=== PATIENT | male | born 1990 | race Caucasian/White ===

== ENCOUNTER 2016-06-26 14:37 | Emergency (ER) | payer MEDICAID | END 2016-06-26 15:57 | disposition left against medical advice (07) | LOC: JP.ED 14:37 | DX: Z53.21 Procedure and treatment not carried out due to patient leaving prior to being seen by health care provider (principal) ==

== ENCOUNTER 2017-01-29 02:11 | Emergency (ER) | payer MEDICAID ==
--- NOTE | 2017-01-29 02:51 | EDM.PDOC ---
ED HPI GENERAL MEDICAL PROBLEM - General Chief Complaint: Chest Pain Stated Complaint: HEART ATTACK? Time Seen by Provider: 01/29/17 02:24 Source of Information: Reports: Patient, Family (spouse), Old Records, RN Notes Reviewed History Limitations: Reports: No Limitations - History of Present Illness INITIAL COMMENTS - FREE TEXT/NARRATIVE: 05.18 Brought by his Chief complaint Chest pain, worried he's having a heart attack History of present illness 26-year-old male with no cardiac history, late down to sleep but started developing right anterior and central chest pain, sharp, worse with deep breath and worse with movement. Started over 3 hours ago. Did have some sweating with it some slight nausea but no vomiting. No palpitations. However he fed did feel that his hands are numb. Reports considerable stress lately. 3-week-old child in her sleep recently and at the found that his 13 -year-old sibling has cancer. 3-year-old daughter underwent heart valve surgery. He's had some diarrhea last few days Family history heart disease in his mom who has only 20% of cardiac function left. No recent illness or infection No leg swelling No smoking Has been diagnosed with bipolar and ADD - Related Data Allergies Allergy/AdvReac Type Severity Reaction Status Date / Time No Known Allergies Allergy Verified 01/29/17 02:13 Home Meds: Home Meds Lisdexamfetamine [Vyvanse] 70 mg PO DAILY 03/21/16 [History] Melatonin 3 mg PO DAILY PRN 03/21/16 [History] Mirtazapine [Mirtazapine] 15 mg PO ASDIRECTED 03/21/16 [History] OXcarbazepine [Oxcarbazepine] 300 mg PO DAILY 03/21/16 [History] Sertraline HCl [Zoloft] 50 mg PO DAILY 03/21/16 [History] Past Medical History HEENT History: Reports: Other (See Below) Other HEENT History: Frequent tooth pain. Cardiovascular History: Reports: Hypertension Gastrointestinal History: Reports: GERD Other Gastrointestinal History: ulcer Musculoskeletal History: Reports: Back Pain, Chronic Psychiatric History: Reports: ADHD, Anxiety, Bipolar, Depression Endocrine/Metabolic History: Reports: Diabetes, Type II - Infectious Disease History Infectious Disease History: Reports: Chicken Pox Social & Family History - Tobacco Use Smoking Status *Q: Current Every Day Smoker Years of Tobacco use: 13 Packs/Tins Daily: 0.7 Used Tobacco, but Quit: No Month Tobacco Last Used: 09 Second Hand Smoke Exposure: Yes - Caffeine Use Caffeine Use: Reports: Coffee, Soda - Alcohol Use Days Per Week of Alcohol Use: 0 Number of Drinks Per Day: 6 Total Drinks Per Week: 0 - Recreational Drug Use Recreational Drug Use: No Drug Use in Last 12 Months: Yes Recreational Drug Type: Reports: Amphetamines (Speed), Cocaine, Inhalants (Glues , Solvents, Aerosols), Marijuana/Hashish, Methamphetamine, Other (see below) Recreational Drug Use Frequency: Not Used In Over 6 Months ED ROS GENERAL - Review of Systems Review Of Systems: See Below Constitutional: Reports: Diaphoresis. Denies: Fever, Chills, Decreased Appetite , Weight Loss, Weight Gain HEENT: Denies: Dental Pain, Ear Pain, Eye Discharge, Rhinitis Respiratory: Reports: Shortness of Breath, Pleuritic Chest Pain. Denies: Wheezing, Cough, Sputum Cardiovascular: Reports: Chest Pain, Blood Pressure Problem. Denies: Dyspnea on Exertion, Lightheadedness, Palpitations Endocrine: Reports: No Symptoms GI/Abdominal: Reports: Diarrhea, Melena, Nausea. Denies: Abdominal Pain, Vomiting : Reports: No Symptoms Musculoskeletal: Reports: No Symptoms Skin: Reports: No Symptoms Neurological: Reports: No Symptoms, Numbness (Hands) Psychiatric: Reports: Anxiety. Denies: Suicidal Ideation Hematologic/Lymphatic: Reports: No Symptoms Immunologic: Reports: No Symptoms ED EXAM, GENERAL - Physical Exam Exam: See Below Exam Limited By: No Limitations General Appearance: Alert, Anxious, Other (Vital signs appears well) Eye Exam: Bilateral Eye: Normal Inspection Ears: Normal External Exam, Normal Canal Ear Exam: Bilateral Ear: Auricle Normal, Canal Normal, TM normal Nose: Normal Inspection, Normal Mucosa Throat/Mouth: Normal Inspection Head: Atraumatic, Other Neck: Normal Inspection, Non-Tender. No: Carotid Bruit, Thyromegaly Respiratory/Chest: No Respiratory Distress, Lungs Clear, Normal Breath Sounds, No Accessory Muscle Use, Chest Non-Tender Cardiovascular: Normal Peripheral Pulses, Regular Rate, Rhythm GI/Abdominal: Normal Bowel Sounds, Soft, Tender (Mild diffuse) Back Exam: Normal Inspection Extremities: Normal Inspection. No: Pedal Edema Neurological: Alert, Oriented, No Motor/Sensory Deficits Psychiatric: Anxious. No: Depressed Mood Skin Exam: Warm, Dry, Intact, Normal Color, No Rash Lymphatic: No Adenopathy Course - Vital Signs Last Recorded V/S: Last Vital Signs Temp 36.9 C 01/29/17 02:53 Pulse 85 01/29/17 03:10 Resp 16 01/29/17 03:10 BP 131/88 01/29/17 03:10 Pulse Ox 96 01/29/17 03:10 - Orders/Labs/Meds Orders: Active Orders 24 hr Category Date Time Status EKG Documentation Completion [RC] ASDIRECTED Care 01/29/17 02:36 Active Chest 1V Frontal [CR] Stat Exams 01/29/17 02:35 Taken EKG 12 Lead [EK] Routine Ther 01/29/17 02:35 Ordered Labs: Laboratory Tests 01/29/17 01/29/17 01/29/17 Range/Units 02:44 02:44 02:44 WBC 10.0 (4.5-11.0) K/uL RBC 4.41 (4.30-5.90) M/uL Hgb 13.4 (12.0-15.0) g/dL Hct 39.7 L (40.0-54.0) % MCV 90 (80-98) fL MCH 30 (27-31) pg MCHC 34 (32-36) % Plt Count 263 (150-400) K/uL D-Dimer, Quantitative < 100 (0.0-400.0) ng/mL Sodium 136 L (140-148) mmol/L Potassium 3.8 (3.6-5.2) mmol/L Chloride 101 (100-108) mmol/L Carbon Dioxide 25 (21-32) mmol/L Anion Gap 13.8 (5.0-14.0) mmol/L BUN 10 (7-18) mg/dL Creatinine 1.1 (0.8-1.3) mg/dL Est Cr Clr Drug Dosing 107.44 mL/min Estimated GFR (MDRD) > 60 (>60) Glucose 152 H (74-106) mg/dL Calcium 8.7 (8.5-10.1) mg/dL Troponin I < 0.017 (0.000-0.056) ng/mL - Re-Assessments/Exams Free Text/Narrative Re-Assessment/Exam: 01/29/17 02:54 26-year-old male with sharp chest pain aggravated by deep breath and movement. Considerable stress lately EKG shows sinus rhythm without signs of ischemia 01/29/17 03:39 Chest x-ray normal by my interpretation CBC troponin and d-dimer normal Elevated blood sugar 152 Assessment Noncardiac chest pain Pleuritic chest pain Symptomatic treatment Follow-up primary care 1 week if symptoms persisting Also to evaluate elevated blood sugar Departure - Departure Time of Disposition: 03:40 Disposition: Home, Self-Care 01 Condition: Good Clinical Impression: Pleuritic chest pain, Elevated blood sugar level, Non-cardiac chest pain - Discharge Information Instructions: Chest Wall Pain, [id number] Referrals: Annie Dong PA [Primary Care Provider] - Forms: ED Department Discharge Additional Instructions: Take acetaminophen/ibuprofen/naproxen as needed for pain Make an appointment to see your doctor in 1 week to recheck her chest and also to discuss your elevated blood sugar and whether to go on treatment for this Return to emergency if you develop high fever, or shortness of breath or weakness to the point of collapsing or fainting - My Orders Last 24 Hours: My Active Orders 01/29/17 02:35 Chest 1V Frontal [CR] Stat EKG 12 Lead [EK] Routine 01/29/17 02:36 EKG Documentation Completion [RC] ASDIRECTED - Assessment/Plan Last 24 Hours: My Active Orders 01/29/17 02:35 Chest 1V Frontal [CR] Stat EKG 12 Lead [EK] Routine 01/29/17 02:36 EKG Documentation Completion [RC] ASDIRECTED
[2017-01-29 03:11] VITALS: BP 131/88
--- NOTE | 2017-01-29 08:29 | CR ---
Chest 1V Frontal INDICATION: chest pain FINDINGS: Comparison 01/20/2016. No change. Negative AP portable chest x-ray.
== END 2017-01-29 03:51 | disposition home or self-care (01) ==
LOC: JP.ED 02:11
DX: R07.81 Pleurodynia (principal); E11.9 Type 2 diabetes mellitus without complications; I10 Essential (primary) hypertension; F17.210 Nicotine dependence, cigarettes, uncomplicated; Z79.899 Other long term (current) drug therapy
CPT/HCPCS: 36415; 71010; 71010-26; 80048; 84484; 85027; 85379; 93005; 93010; 99284; 99285-25

== ENCOUNTER 2017-11-15 00:50 | Emergency (ER) | payer BC, MEDICAID ==
--- NOTE | 2017-11-15 04:43 | EDM.PDOC ---
ED HPI GENERAL MEDICAL PROBLEM - General Chief Complaint: General Stated Complaint: CHEST PAIN TINGLING DIAHREA Time Seen by Provider: 11/15/17 01:29 Source of Information: Reports: Patient History Limitations: Reports: No Limitations - History of Present Illness INITIAL COMMENTS - FREE TEXT/NARRATIVE: Heavy feeling in upper chest, mild sob, pain in upper back in midline, arms throbbing. Now coughing frequently. chills but no fever. All began within past few hours. Chest Pain Score (Numeric/FACES): 8 - Related Data Allergies Allergy/AdvReac Type Severity Reaction Status Date / Time No Known Allergies Allergy Verified 11/15/17 01:20 Home Meds: Home Meds Lisdexamfetamine [Vyvanse] 70 mg PO DAILY 03/21/16 [History] Dextroamphetamine/Amphetamine [Adderall 10 mg Tablet] 10 mg PO DAILY 11/15/17 [ History] Past Medical History HEENT History: Reports: Impaired Vision, Other (See Below) Other HEENT History: Frequent tooth pain. Cardiovascular History: Reports: Hypertension Respiratory History: Reports: Asthma Gastrointestinal History: Reports: GERD, Other (See Below) Other Gastrointestinal History: ulcer Musculoskeletal History: Reports: Arthritis, Back Pain, Chronic Neurological History: Reports: Concussion Psychiatric History: Reports: ADHD, Anxiety, Depression, Psych Hospitalization(s ), Suicide Attempt Endocrine/Metabolic History: Reports: Diabetes, Type II Dermatologic History: Reports: Psoriasis - Infectious Disease History Infectious Disease History: Reports: Chicken Pox - Past Surgical History HEENT Surgical History: Reports: Myringotomy w Tube(s) Social & Family History - Tobacco Use Smoking Status *Q: Current Every Day Smoker Years of Tobacco use: 15 Packs/Tins Daily: 0.7 - Caffeine Use Caffeine Use: Reports: Soda - Recreational Drug Use Recreational Drug Use: No ED ROS GENERAL - Review of Systems Review Of Systems: See Below Constitutional: Reports: Chills HEENT: Reports: No Symptoms Respiratory: Reports: Shortness of Breath Cardiovascular: Reports: Chest Pain Endocrine: Reports: No Symptoms GI/Abdominal: Reports: No Symptoms : Reports: No Symptoms Musculoskeletal: Reports: Other (HPI) Skin: Reports: No Symptoms Neurological: Reports: No Symptoms Psychiatric: Reports: No Symptoms ED EXAM, GENERAL - Physical Exam Exam: See Below Exam Limited By: No Limitations General Appearance: Alert, WD/WN, Mild Distress Eye Exam: Bilateral Eye: Normal Inspection Throat/Mouth: Normal Oropharynx Neck: Normal Inspection Respiratory/Chest: Lungs Clear, Chest Non-Tender Cardiovascular: Normal Peripheral Pulses, Regular Rate, Rhythm, No Murmur GI/Abdominal: Non-Tender Back Exam: Normal Inspection. No: Muscle Spasm Extremities: Normal Inspection Neurological: Alert Psychiatric: Normal Affect Skin Exam: Warm, Dry Course - Vital Signs Last Recorded V/S: Last Vital Signs Temp 37.1 C 11/15/17 01:23 Pulse 78 11/15/17 02:50 Resp 19 11/15/17 02:50 BP 126/66 11/15/17 02:50 Pulse Ox 96 11/15/17 02:50 - Orders/Labs/Meds Orders: Active Orders 24 hr Category Date Time Status EKG Documentation Completion [RC] ASDIRECTED Care 11/15/17 01:40 Active Chest 2V [CR] Urgent Exams 11/15/17 01:39 Taken EKG 12 Lead [EK] Urgent Ther 11/15/17 01:39 Ordered Labs: Laboratory Tests 11/15/17 11/15/17 11/15/17 Range/Units 01:50 01:50 01:50 WBC 8.9 (4.5-11.0) K/uL RBC 4.38 (4.30-5.90) M/uL Hgb 13.2 (12.0-15.0) g/dL Hct 39.6 L (40.0-54.0) % MCV 90 (80-98) fL MCH 30 (27-31) pg MCHC 33 (32-36) % Plt Count 293 (150-400) K/uL Neut % (Auto) 58 (36-66) % Lymph % (Auto) 30 (24-44) % [place] % (Auto) 8 H (2-6) % Eos % (Auto) 4 (2-4) % Baso % (Auto) 1 (0-1) % D-Dimer, Quantitative < 100 (0.0-400.0) ng/mL Sodium 137 L (140-148) mmol/L Potassium 3.4 L (3.6-5.2) mmol/L Chloride 102 (100-108) mmol/L Carbon Dioxide 24 (21-32) mmol/L Anion Gap 14.4 H (5.0-14.0) mmol/L BUN 13 (7-18) mg/dL Creatinine 0.9 (0.8-1.3) mg/dL Est Cr Clr Drug Dosing 130.15 mL/min Estimated GFR (MDRD) > 60 (>60) Glucose 147 H (74-106) mg/dL Calcium 8.6 (8.5-10.1) mg/dL Total Bilirubin 0.3 D (0.2-1.0) mg/dL AST 45 H D (15-37) U/L ALT 99 H (12-78) U/L Alkaline Phosphatase 49 (46-116) U/L Troponin I < 0.017 (0.000-0.056) ng/mL Total Protein 6.6 (6.4-8.2) g/dL Albumin 3.5 (3.4-5.0) g/dL Globulin 3.1 (2.3-3.5) g/dL Albumin/Globulin Ratio 1.1 L (1.2-2.2) - Radiology Interpretation Free Text/Narrative:: CXR normal heart size lung markings bony and soft tissues - Re-Assessments/Exams Free Text/Narrative Re-Assessment/Exam: 11/15/17 04:41 Patient notes that he's had elevated LFT's for a long time but never tested for HepC. Wants cough med. Departure - Departure Time of Disposition: 04:42 Disposition: Home, Self-Care 01 Condition: Fair Clinical Impression: Acute viral tracheitis - Discharge Information Referrals: Annie Dong PA [Primary Care Provider] - Additional Instructions: Use the cough med as directed. May cause sedation and impair driving or operating machinery. Can cause addiction if used for a long period. - My Orders Last 24 Hours: My Active Orders 11/15/17 01:39 Chest 2V [CR] Urgent EKG 12 Lead [EK] Urgent 11/15/17 01:40 EKG Documentation Completion [RC] ASDIRECTED - Assessment/Plan Last 24 Hours: My Active Orders 11/15/17 01:39 Chest 2V [CR] Urgent EKG 12 Lead [EK] Urgent 11/15/17 01:40 EKG Documentation Completion [RC] ASDIRECTED
[2017-11-15 05:27] VITALS: BP 129/80
--- NOTE | 2017-11-15 08:29 | CR ---
CHEST: 2 view CLINICAL HISTORY:Chest pain COMPARISON:2017 FINDINGS: Heart size and pulmonary vascular is normal. Lung starkey are clear.. IMPRESSION: No acute cardiopulmonary process or significant change from prior study
== END 2017-11-15 05:04 | disposition home or self-care (01) ==
LOC: JP.ED 00:50
DX: J04.10 Acute tracheitis without obstruction (principal); F17.210 Nicotine dependence, cigarettes, uncomplicated; I10 Essential (primary) hypertension
CPT/HCPCS: 36415; 71046; 71046-26; 80053; 84484; 85025; 85379; 93005; 99285-25

== ENCOUNTER 2018-07-10 20:29 | Emergency (ER) | payer BC, MEDICAID ==
[2018-07-10 20:49] VITALS: BP 182/119
[2018-07-10] MEDS ORDERED: Ibuprofen 600 MG Tab PO ONE (21:22)
[2018-07-10] MEDS ORDERED: Ondansetron 4 MG Tab.DIS PO ONE (21:24)
--- NOTE | 2018-07-10 21:24 | EDM.PDOC ---
ED HPI GENERAL MEDICAL PROBLEM - General Chief Complaint: General Stated Complaint: FEVER,HEADACHE,COUGH Time Seen by Provider: 07/10/18 21:22 Source of Information: Reports: Patient History Limitations: Reports: No Limitations - History of Present Illness INITIAL COMMENTS - FREE TEXT/NARRATIVE: pt arrived this am feeling achy all over and having a fever. He felt ok when he went to bed last nite. Onset: Today, Sudden Duration: Hour(s): Location: Reports: Generalized Associated Symptoms: Reports: Cough, Diaphoresis, Fever/Chills, Other (pt did fell nauseated/ ) headache Pain Score (Numeric/FACES): 6 body aches Pain Score (Numeric/FACES): 5 - Related Data Allergies Allergy/AdvReac Type Severity Reaction Status Date / Time No Known Allergies Allergy Verified 07/10/18 20:53 Home Meds: Home Meds Lisdexamfetamine [Vyvanse] 70 mg PO DAILY 03/21/16 [History] Dextroamphetamine/Amphetamine [Adderall 10 mg Tablet] 10 mg PO DAILY 11/15/17 [ History] Acetaminophen with Codeine [Tylenol with Codeine #3 Tablet] 1 each PO Q8HR PRN # 24 tablet 07/17/18 [Rx] methylPREDNISolone [Medrol] 4 mg PO ASDIRECTED #1 dosepk 07/17/18 [Rx] Past Medical History HEENT History: Reports: Impaired Vision, Other (See Below) Other HEENT History: Frequent tooth pain. Cardiovascular History: Reports: Hypertension Respiratory History: Reports: Asthma Gastrointestinal History: Reports: GERD, Other (See Below) Other Gastrointestinal History: ulcer Musculoskeletal History: Reports: Arthritis, Back Pain, Chronic Other Musculoskeletal History: Neck, groin and back pain Neurological History: Reports: Concussion Psychiatric History: Reports: ADHD, Anxiety, Depression, Psych Hospitalization(s ), Suicide Attempt Endocrine/Metabolic History: Reports: Diabetes, Type II, Other (See Below) Other Endocrine/Metabolic History: broader line type 2 diabetic Dermatologic History: Reports: Psoriasis - Infectious Disease History Infectious Disease History: Reports: Chicken Pox Other Infectious Disease History: worked up for TB, but never was told results - Past Surgical History HEENT Surgical History: Reports: Myringotomy w Tube(s) Social & Family History - Tobacco Use Smoking Status *Q: Current Every Day Smoker Years of Tobacco use: 15 Packs/Tins Daily: 1 - Caffeine Use Caffeine Use: Reports: Soda - Recreational Drug Use Recreational Drug Use: Yes Drug Use in Last 12 Months: No Recreational Drug Type: Reports: Cocaine, Marijuana/Hashish, Methamphetamine Recreational Drug Use Frequency: Not Used In Over 6 Months ED ROS GENERAL - Review of Systems Review Of Systems: See Below Constitutional: Reports: Fever, Chills, Malaise HEENT: Reports: No Symptoms Respiratory: Reports: Cough Cardiovascular: Reports: No Symptoms Endocrine: Reports: No Symptoms GI/Abdominal: Reports: Nausea : Reports: No Symptoms Musculoskeletal: Reports: No Symptoms Skin: Reports: No Symptoms ED EXAM, GENERAL - Physical Exam Exam: See Below Free Text/Narrative:: pt arrived having chiolls and hurting all over. His is also ill. He was nauseated when he arrived here but did not vomit. Exam Limited By: No Limitations General Appearance: Alert, Anxious, Moderate Distress Ears: Normal TMs Nose: Normal Inspection Throat/Mouth: Normal Inspection Head: Atraumatic Neck: Normal Inspection Respiratory/Chest: No Respiratory Distress Cardiovascular: Regular Rate, Rhythm GI/Abdominal: Soft, Non-Tender (Male) Exam: Deferred Rectal (Males) Exam: Deferred Back Exam: Normal Inspection Extremities: Normal Inspection Course - Vital Signs Last Recorded V/S: Last Vital Signs Temp 37.3 C 07/10/18 20:50 Pulse 148 H 07/10/18 20:50 Resp 18 07/10/18 20:50 BP 182/119 H 07/10/18 20:50 Pulse Ox 98 07/10/18 20:50 - Orders/Labs/Meds Labs: Laboratory Tests 07/10/18 Range/Units 21:26 WBC 6.2 (4.5-11.0) K/uL RBC 4.88 (4.30-5.90) M/uL Hgb 14.6 (12.0-15.0) g/dL Hct 43.6 (40.0-54.0) % MCV 89 (80-98) fL MCH 30 (27-31) pg MCHC 34 (32-36) % Plt Count 226 (150-400) K/uL Neut % (Auto) 74 H (36-66) % Lymph % (Auto) 12 L (24-44) % [place] % (Auto) 12 H (2-6) % Eos % (Auto) 2 (2-4) % Baso % (Auto) 0 (0-1) % Meds: Medications Discontinued Medications Generic Name Dose Route Start Last Admin Trade Name Coty PRN Reason Stop Dose Admin Ibuprofen 600 mg 07/10/18 21:22 07/10/18 21:29 Motrin PO 07/10/18 21:23 600 mg ONETIME ONE Administration Ondansetron HCl 4 mg 07/10/18 21:24 07/10/18 21:32 Zofran Odt PO 07/10/18 21:25 4 mg ONETIME ONE Administration - Re-Assessments/Exams Free Text/Narrative Re-Assessment/Exam: 07/10/18 22:46 pt was given zoforan 4 mg subling and he had motrin 600mg .pt had a neg infu a and b. 07/17/18 19:01 Departure - Departure Time of Disposition: 22:46 Disposition: Home, Self-Care 01 Condition: Fair Clinical Impression: Viral illness - Discharge Information Instructions: Viral Illness, Adult Referrals: Annie Dong PA [Primary Care Provider] - Forms: ED Department Discharge Care Plan Goals: push fluids, tylenol alternating with motrin for fever and body aches, rtc if symptoms should get worse.
== END 2018-07-10 22:40 | disposition home or self-care (01) ==
LOC: JP.ED 20:29
DX: B34.9 Viral infection, unspecified (principal); E11.9 Type 2 diabetes mellitus without complications; F90.9 Attention-deficit hyperactivity disorder, unspecified type; F41.9 Anxiety disorder, unspecified; F32.9 Major depressive disorder, single episode, unspecified; F17.200 Nicotine dependence, unspecified, uncomplicated; Z79.899 Other long term (current) drug therapy
CPT/HCPCS: 36415; 85025; 87804; 99284; A9270

== ENCOUNTER 2019-08-10 11:48 | Emergency (ER) | payer MEDICAID ==
[2019-08-10 12:08] VITALS: BP 134/94; PULSE 104
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
[2019-08-10] MEDS: Acetaminophen 325 MG Tab, 50 Tab Bulk Bottle PO ONE (12:44)
[2019-08-10] MEDS: Acetaminophen 325 MG Tab PO ONE (13:02)
--- NOTE | 2019-08-10 13:14 | CRLCR ---
Indication: Pain Technique: Left 1st toe 3 views Comparison: None Findings: Bones: Questionable subtle nondisplaced fracture in the distal tuft visualized on the oblique image. However, this could represent a normal irregularity simulating a fracture. No other osseous abnormality. Bone alignment is normal. Joint spaces: No significant degenerative changes. Soft tissues: Unremarkable. Dictated by Gabino Price MD @ Aug 10 2019 1:09PM Signed by Dr. Gabino Price @ Aug 10 2019 1:14PM
--- NOTE | 2019-08-10 13:18 | CRLCT ---
INDICATION: TRAUMA, NASAL AND LEFT JAW PAIN TECHNIQUE: CT Head without contrast. COMPARISON: None. FINDINGS: CSF spaces: Within normal limits for age. Brain parenchyma: The montgomery-white differentiation is normal. No sign of mass, hemorrhage, or midline shift. Skull base and calvarium: The visualized paranasal sinuses and mastoid air cells are clear. The visualized orbits are grossly unremarkable. No skull fractures. IMPRESSION: Unremarkable noncontrast head CT. Please note that all CT scans at this facility use dose modulation, iterative reconstruction, and/or weight-based dosing when appropriate to reduce radiation dose to as low as reasonably achievable. Dictated by: Gabino Price MD @ 08/10/2019 13:18:05 (Electronically Signed)
--- NOTE | 2019-08-10 13:31 | CRLCT ---
INDICATION: Pain, trauma TECHNIQUE: CT maxillofacial without contrast. COMPARISON: None FINDINGS: Facial bones: No fractures or bone lesions. Specifically the nasal bones, temporomandibular joints, maxilla and mandible appear intact. Orbits and globes: Unremarkable. Sinuses: No acute or significant findings. Soft tissues: Unremarkable. IMPRESSION: No sign of acute injury. Dictated by Valente Royal MD @ 08/10/2019 1:29:54 PM Please note that all CT scans at this facility use dose modulation, iterative reconstruction, and/or weight-based dosing when appropriate to reduce radiation dose to as low as reasonably achievable. Dictated by: Valente Royal MD @ 08/10/2019 13:30:00 (Electronically Signed)
== END 2019-08-10 14:22 | disposition home or self-care (01) ==
LOC: JP.ED 11:48
DX: S00.83XA Contusion of other part of head, initial encounter (principal); S00.03XA Contusion of scalp, initial encounter; E66.9 Obesity, unspecified; Z68.34 Body mass index [BMI] 34.0-34.9, adult; L98.8 Other specified disorders of the skin and subcutaneous tissue; I10 Essential (primary) hypertension; F41.9 Anxiety disorder, unspecified; F32.9 Major depressive disorder, single episode, unspecified; F90.9 Attention-deficit hyperactivity disorder, unspecified type; E11.9 Type 2 diabetes mellitus without complications; J45.909 Unspecified asthma, uncomplicated; F17.210 Nicotine dependence, cigarettes, uncomplicated; Z79.899 Other long term (current) drug therapy; Y04.2XXA Assault by strike against or bumped into by another person, initial encounter
CPT/HCPCS: 70450; 70486; 73660; 99283; 99284; A9270

== ENCOUNTER 2019-11-17 15:29 | Emergency (ER) | payer MEDICAID ==
[2019-11-17 15:40] VITALS: BP 160/107; PULSE 96
[2019-11-17] MEDS ORDERED: Ondansetron 4 MG Tab.DIS PO ONE (16:40)
--- NOTE | 2019-11-17 16:46 | EDM.PDOC ---
ED HPI GENERAL MEDICAL PROBLEM - General Chief Complaint: Gastrointestinal Problem Stated Complaint: VOMITTING,STOMACH PAINS Time Seen by Provider: 11/17/19 16:20 Source of Information: Reports: Patient History Limitations: Reports: No Limitations - History of Present Illness INITIAL COMMENTS - FREE TEXT/NARRATIVE: This is a 29-year-old male presents with concerns of nausea, vomiting and diarrhea. He reports his symptoms started approximately 3 days ago, initially with sulfur burps. Since this time he is developed vomiting as well as brown diarrhea. He denies any blood in the stools or black tarry stools. He has had no fever. He has some associated diffuse, crampy abdominal pain. He has no history of prior abdominal surgeries. He takes no daily medications and has no chronic medical conditions. He works as a central supply worker. He has no sick contacts. No recent travel or antibiotic use. - Related Data Allergies Allergy/AdvReac Type Severity Reaction Status Date / Time No Known Allergies Allergy Verified 11/17/19 15:41 Home Meds: Home Meds Lisdexamfetamine [Vyvanse] 70 mg PO DAILY 03/21/16 [History] Amphetamine/Dextroamphetamine [Adderall] 1 tab PO DAILY 08/10/19 [History] Ondansetron [Zofran ODT] 4 mg PO Q6H PRN #6 tab.dis 11/17/19 [Rx] Sertraline HCl 25 mg PO DAILY 11/17/19 [History] hydrOXYzine HCL [hydrOXYzine] 25 mg PO DAILY 11/17/19 [History] Past Medical History HEENT History: Reports: Impaired Vision, Other (See Below) Other HEENT History: Frequent tooth pain. Cardiovascular History: Reports: Hypertension Respiratory History: Reports: Asthma Gastrointestinal History: Reports: GERD, Other (See Below) Other Gastrointestinal History: ulcer Genitourinary History: Reports: None Musculoskeletal History: Reports: Arthritis, Back Pain, Chronic Other Musculoskeletal History: Lumbago Neurological History: Reports: Concussion Psychiatric History: Reports: ADHD, Anxiety, Depression, Psych Hospitalization(s), Suicide Attempt Endocrine/Metabolic History: Reports: Diabetes, Type II, Other (See Below) Other Endocrine/Metabolic History: broader line type 2 diabetic Hematologic History: Reports: None Immunologic History: Reports: None Oncologic (Cancer) History: Reports: None Dermatologic History: Reports: Psoriasis - Infectious Disease History Infectious Disease History: Reports: Chicken Pox Other Infectious Disease History: worked up for TB, but never was told results - Past Surgical History Head Surgeries/Procedures: Reports: None HEENT Surgical History: Reports: Myringotomy w Tube(s) Cardiovascular Surgical History: Reports: None Respiratory Surgical History: Reports: None GI Surgical History: Reports: None Endocrine Surgical History: Reports: None Neurological Surgical History: Reports: None Musculoskeletal Surgical History: Reports: None Dermatological Surgical History: Reports: None Social & Family History - Tobacco Use Smoking Status *Q: Current Every Day Smoker Years of Tobacco use: 17 Packs/Tins Daily: 1 Second Hand Smoke Exposure: Yes - Caffeine Use Caffeine Use: Reports: Soda - Recreational Drug Use Recreational Drug Use: No ED ROS GENERAL - Review of Systems Review Of Systems: See Below Constitutional: Reports: No Symptoms. Denies: Fever HEENT: Reports: No Symptoms Respiratory: Reports: No Symptoms Cardiovascular: Reports: No Symptoms Endocrine: Reports: No Symptoms GI/Abdominal: Reports: Abdominal Pain, Diarrhea, Nausea, Vomiting : Reports: No Symptoms Musculoskeletal: Reports: No Symptoms Skin: Reports: No Symptoms Neurological: Reports: No Symptoms Psychiatric: Reports: No Symptoms Hematologic/Lymphatic: Reports: No Symptoms Immunologic: Reports: No Symptoms ED EXAM, GI/ABD - Physical Exam Exam: See Below Exam Limited By: No Limitations General Appearance: Alert, No Apparent Distress Ears: Normal External Exam Nose: Normal Inspection Throat/Mouth: Normal Inspection Head: Atraumatic, Normocephalic Respiratory/Chest: No Respiratory Distress Cardiovascular: Regular Rate, Rhythm GI/Abdominal Exam: Soft, No Distention, Tender (mild diffuse tenderness) Back Exam: Normal Inspection Extremities: Normal Inspection Neurological: Alert, Oriented Psychiatric: Normal Affect, Normal Mood Skin Exam: Warm, Dry Course - Vital Signs Last Recorded V/S: Last Vital Signs Temp 35.8 C L 11/17/19 15:48 Pulse 96 11/17/19 15:48 Resp 18 11/17/19 15:48 BP 160/107 H 11/17/19 15:48 Pulse Ox 99 11/17/19 15:48 - Orders/Labs/Meds Meds: Medications Discontinued Medications Generic Name Dose Route Start Last Admin Trade Name Freq PRN Reason Stop Dose Admin Ondansetron HCl 4 mg 11/17/19 16:40 11/17/19 16:49 Zofran Odt PO 11/17/19 16:41 4 mg ONETIME ONE Administration - Re-Assessments/Exams Free Text/Narrative Re-Assessment/Exam: This is a 29-year-old male presents with nausea vomiting and diarrhea. On exam he is found to have normal vital signs. Overall reassuring abdominal exam with only diffuse mild tenderness. Suspicion at this time for an acute intra-abdominal surgical process or other emergent diagnosis is low. His symptoms are consistent with a viral gastroenteritis. We are going to administer him a dose of Zofran and then do a p.o. trial. If he tolerates this he should be appropriate for symptomatic outpatient management. 11/17/19 16:46 Free Text/Narrative Re-Assessment/Exam: 11/17/19 17:43 Feels much better after zofran. Tolerating PO Safe for discharge with zofran script Departure - Departure Time of Disposition: 17:43 Disposition: Home, Self-Care 01 Clinical Impression: Gastroenteritis - Discharge Information Prescriptions: Ondansetron [Zofran ODT] 4 mg PO Q6H PRN #6 tab.dis PRN Reason: Nausea Instructions: Viral Gastroenteritis, Adult, Abdominal Pain, Adult, [id number] Referrals: PCP,None [Primary Care Provider] - Forms: ED Department Discharge Additional Instructions: We suspect that you have a viral GI infection. Take the Zofran prescribed as needed, push fluids and eat a bland diet for the next several days. If you develop a significant increase in your pain, fevers, or other new concerning symptoms please return to the emergency room or see your physician for reevaluation. Thank you for letting us care for you today. Sepsis Event Note (ED) - Evaluation Sepsis Screening Result: No Definite Risk - Focused Exam Vital Signs: Vital Signs Temp Pulse Resp BP Pulse Ox 11/17/19 15:48 35.8 C L 96 18 160/107 H 99 11/17/19 15:39 35.8 C L 96 18 160/107 H 99
== END 2019-11-17 17:56 | disposition home or self-care (01) ==
LOC: JP.ED 15:29
DX: K52.9 Noninfective gastroenteritis and colitis, unspecified (principal); I10 Essential (primary) hypertension; F41.9 Anxiety disorder, unspecified; F32.9 Major depressive disorder, single episode, unspecified; J45.909 Unspecified asthma, uncomplicated; F17.210 Nicotine dependence, cigarettes, uncomplicated; Z79.899 Other long term (current) drug therapy
CPT/HCPCS: 99283; A9270